=== PATIENT | male | born 1970 | race Caucasian/White ===

== ENCOUNTER 2017-06-15 04:54 | Emergency (ER) | payer BC, OTHER ==
--- NOTE | 2017-06-15 05:17 | Emergency Department Record ---
History of Present Illness - General Chief complaint: Pain Stated complaint: RT KNEE PAIN Time Seen by Provider: 06/15/17 05:06 Source: Patient Mode of Arrival: Ambulatory Limitations: No limitations - History of Present Illness Initial comments: 46 yo male presents to ED with a 2-day history of medial right knee pain. 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 Patient denies fevers, chills, or recent illness. Patient reports taking Motrin 800 which helped "for about 10 minutes". Patient denies health problems at his baseline. MD Complaint: Joint pain Onset/Timin -: Days(s) Location: Right, Knee Severity scale (1-10): 8 Quality: Aching, Stabbing Consistency: Constant Improves with: Nothing Worsens with: Other (movement) Associated Symptoms: Denies other symptoms - Related Data Allergies Allergy/AdvReac Type Severity Reaction Status Date / Time Penicillins AdvReac HIVES Verified 06/15/17 05:16 Travel Screening - Travel/Exposure Within Last 30 Days Have you traveled within the last 30 days?: No Review of Systems Constitutional: Denies: Chills, Fever, Malaise, Night sweats Eyes: Denies: Eye discharge, Eye pain ENT: Denies: Congestion, Ear pain Respiratory: Denies: Cough, Dyspnea Cardiovascular: Denies: Chest pain, Dyspnea on exertion Endocrine: Denies: Fatigue, Heat or cold intolerance Gastrointestinal: Denies: Abdominal pain, Nausea, Vomiting Genitourinary: Denies: Incontinence, Retention Musculoskeletal: Reports: Arthralgia. Denies: Back pain, Gout, Joint swelling Skin: Denies: Bruising, Change in color Neurological: Denies: Abnormal gait, Confusion, Tingling, Tremors Psychiatric: Denies: Anxiety Hematological/Lymphatic: Denies: Anemia, Blood Clots Past Medical History - SOCIAL HISTORY Smoking Status: Current some day smoker Alcohol Use: None Drug Use: None - RESPIRATORY Hx Respiratory Disorders: No - CARDIOVASCULAR Hx Cardio Disorders: No - NEURO Hx Neuro Disorders: No - GI Hx GI Disorders: No - Hx Genitourinary Disorders: No - ENDOCRINE Hx Endocrine Disorders: No - MUSCULOSKELETAL Hx Musculoskeletal Disorders: No - PSYCH Hx Psych Problems: No - HEMATOLOGY/ONCOLOGY Hx Hematology/Oncology Disorders: No Family Medical History Any Significant Family History?: Yes Hx Cancer: Brother/Sister Physical Exam - General General Appearance: Alert, Oriented x3, Cooperative, Mild distress Limitations: No limitations - Head Head exam: Atraumatic, Normocephalic, Normal inspection Head exam detail: negative: Abrasion, Contusion, De La Fuente's sign, General tenderness, Hematoma, Laceration - Eye Eye exam: Normal appearance. negative: Conjunctival injection, Periorbital swelling, Periorbital tenderness, Scleral icterus - ENT Ear exam: negative: Auricular hematoma, Auricular trauma Nasal Exam: negative: Active bleeding, Discharge, Dried blood, Foreign body Mouth exam: negative: Drooling, Laceration, Muffled voice, Tongue elevation - Neck Neck exam: Normal inspection. negative: Meningismus, Tenderness - Respiratory Respiratory exam: Normal lung sounds bilaterally. negative: Rales, Respiratory distress, Rhonchi, Stridor - Cardiovascular Cardiovascular Exam: Regular rate, Normal rhythm, Normal heart sounds - GI/Abdominal GI/Abdominal exam: Soft. negative: Rebound, Rigid, Tenderness - Rectal Rectal exam: Deferred - exam: Deferred - Extremities Extremities exam: Tenderness (Moderate TTP to the right medial knee, no effusion present, no erythema or warmth to the knee on examination, ligaments are stable on examination however pain is elicitied with collateral ligament stress). negative: Calf tenderness, Pedal edema - Back Back exam: Denies: CVA tenderness (R), CVA tenderness (L) - Neurological Neurological exam: Alert, Normal gait, Oriented X3 - Psychiatric Psychiatric exam: Normal affect, Normal mood - Skin Skin exam: Normal color. negative: Abrasion Type of lesion: negative: abrasion Course Vital Signs 06/15/17 05:00 Temperature 98.4 F Pulse Rate [ 85 Pulse Ox Probe] Respiratory 18 Rate Blood Pressure 140/94 [Left Arm] Pulse Ox 96 - Reevaluation(s) Reevaluation #1: 06/15/17 05:57 Right knee: Nothing acute Patient was updated on his radiology result, reports that he has crutches at home and denies the need for opiate analgesia at home. Will place in knee immobilizer and prescribe motrin 800 mg every 6 hours for his pain symptoms. Patient appears stable for discharge at this time. Disposition Disposition: Discharge Clinical Impression: Strain of right knee Qualifiers: Encounter type: initial encounter Qualified Code(s): S86.911A - Strain of unspecified muscle(s) and tendon(s) at lower leg level, right leg, initial encounter Disposition: Home, Self-Care Condition: (2) Stable Instructions: Knee Pain (ED) Additional Instructions: Return to ED if your symptoms worsen or if you have any concerns. Motrin 800 mg as needed for pain. Follow-up with your family doctor in 3-5 days as directed. Knee immobilizer as directed. Forms: Patient Portal Access Time of Disposition: 06:02 Quality - Quality Measures Quality Measures: N/A - Blood Pressure Screening Blood Pressure Classification: Hypertensive Reading Systolic Measurement: 140 Diastolic Measurement: 94 Screening for High Blood Pressure: < First Hypertensive BP, F/U Documented > [ [id number]] First Hypertensive Follow-up Interventions: Referral to alternative/primary care provider.
--- NOTE | 2017-06-17 09:01 | RADIOLOGY REPORT ---
EXAM: RIGHT KNEE, FOUR VIEWS HISTORY: THREE DAYS MEDIOLATERAL ANTERIOR RIGHT KNEE TENDERNESS. TECHNIQUE: Four views of the right knee were obtained. Comparison: None. FINDINGS: The joint spaces are preserved. Increased density in the suprapatellar recess consistent with small joint effusion. There are two mineralized densities projecting just medial to the medial joint space measuring up to 5 mm. No fracture. IMPRESSION: SMALL RIGHT KNEE JOINT EFFUSION. POSSIBLE TWO INTRAARTICULAR BODIES MEDIAL JOINT RECESS. JOB NUMBER: [id number] [facility]
== END 2017-06-15 06:25 | disposition home or self-care (01) ==
LOC: ER 04:54
DX: S86.911A Strain of unspecified muscle(s) and tendon(s) at lower leg level, right leg, initial encounter (principal); X58.XXXA Exposure to other specified factors, initial encounter
CPT/HCPCS: 99283